=== PATIENT | male | born 1955 | race Caucasian/White ===

== ENCOUNTER 2018-02-01 17:08 | Emergency (ER) | payer OTHER ==
[~2018-02-01] VITALS: Ht 190.5 cm; Wt 73.6 kg
[~2018-02-01 17:08] MED LIST: FOLI1TAB16 PO; MAGN64TA10 PO; MULT-1179 PO; NICO-630 TD; PANT-47 PO; POTA20TA10 PO; THI100T PO
[2018-02-01] MEDS ORDERED: magnesium oxide 400mg tablet PO ONE ×2 (17:25→19:25)
[2018-02-01] MEDS ORDERED: thiamine 100mg tablet PO ONE ×2 (17:25→19:25)
[2018-02-01] MEDS ORDERED: folic acid 1mg tablet PO ONE ×2 (17:25→19:25)
[2018-02-01] MEDS ORDERED: normal saline 1000ML IV soln IVB ONE (17:25)
[2018-02-01] MEDS ORDERED: magnesium 2GM in 50ml NS 50 ML IV ONE (17:25)
[2018-02-01 17:56] LABS: BASOPHILS # (AUTO) 0.1 X10'3 (0-0.2); BASOPHILS % (AUTO) 0.7 % (0-1); EOSINOPHILS # (AUTO) 0.3 X10'3 (0-0.9); EOSINOPHILS % (AUTO) 2.9 % (0-6); HEMOGLOBIN 9.9 g/dl (14.0-17.9); LYMPHOCYTES # (AUTO) 1.3 X10'3 (1.1-4.8); LYMPHOCYTES % (AUTO) 12.9 % (21-51); MEAN CORPUSCULAR HEMOGLOBIN 35.2 PG (27.0-31.0); MEAN CORPUSCULAR VOLUME 103.4 FL (78-98); MEAN PLATELET VOLUME 7.7 FL (7.4-10.4); MONOCYTES # (AUTO) 0.5 X10'3 (0-0.9); MONOCYTES % (AUTO) 4.7 % (2-12); NEUTROPHILS # (AUTO) 7.9 X10'3 (1.8-7.7); NEUTROPHILS % (AUTO) 78.8 % (42-75); PLATELET COUNT 193 X10'3 (140-440); RED CELL DISTRIBUTION WIDTH 16.7 % (11.5-14.5)
[2018-02-01 18:03] LABS: PARTIAL THROMBOPLASTIN TIME 27 SECONDS (22-32); PROTHROMBIN TIME 10.5 SECONDS (9.0-12.0)
[2018-02-01 18:08] LABS: ALANINE AMINOTRANSFERASE 30 U/L (12-78); ALBUMIN 2.4 G/DL (3.4-5.0); ALBUMIN/GLOBULIN RATIO 0.5 (1.1-1.5); ALKALINE PHOSPHATASE 269 IU/L (46-116); ANION GAP 15 (8-16); ASPARTATE AMINO TRANSFERASE 116 U/L (10-37); BILIRUBIN,TOTAL 0.7 MG/DL (0.1-1.0); BLOOD UREA NITROGEN 9 MG/DL (7-18); BUN/CREATININE RATIO 9.1 (5.4-32.0); CALCIUM 8.2 MG/DL (8.5-10.1); CHLORIDE 99 MMOL/L (99-107); CREATININE 0.99 MG/DL (0.60-1.10); GLUCOSE 104 MG/DL (70-104); MAGNESIUM 1.2 MG/DL (1.5-2.4); POTASSIUM 3.4 MMOL/L (3.5-5.1); SODIUM 138 MMOL/L (135-145); TOTAL CARBON DIOXIDE 24.1 MMOL/L (24-32); TOTAL PROTEIN 6.8 G/DL (6.4-8.2); eGFR 76 ML/MIN
[2018-02-01] MEDS ORDERED: potassium Cl 20 mEq SR tablet PO ONE (18:15)
[2018-02-01 18:26] LABS: URINE AMPHETAMINE SCREEN NEGATIVE (Neg); URINE BARBITUATE SCREEN NEGATIVE (Neg); URINE BENZODIAZEPINES SCREEN NEGATIVE (Neg); URINE CANNABINOID SCREEN POSITIVE (Neg); URINE COCAINE SCREEN NEGATIVE (Neg); URINE METHADONE SCREEN NEGATIVE (Neg); URINE OPIATE SCREEN NEGATIVE (Neg); URINE PHENCYCLIDINE SCREEN NEGATIVE (Neg)
[2018-02-01 18:31] LABS: CLARITY,URINE CLEAR (Clear); COLOR,URINE YELLOW (Yellow); GLUCOSE, URINE NEGATIVE (Neg); KETONES,URINE TRACE mg/dl (Neg); LEUKOCYTE ESTERASE ,URINE NEGATIVE (Neg); NITRITES, URINE NEGATIVE (Neg); OCCULT BLOOD,URINE NEGATIVE (Neg); PH,URINE 5.5 (4.8-8.0); PROTEIN,URINE NEGATIVE (Neg)
[2018-02-01 18:39] LABS: UA COLLECTION TYPE URINAL
[2018-02-01] MEDS ORDERED: chlordiazePOXIDE 25mg capsule PO ONE (19:25)
[2018-02-01] MEDS ORDERED: MAGN400C PO (19:29)
[2018-02-01 19:39] LABS: OCCULT BLOOD STOOL NEGATIVE (Neg)
[2018-02-01 19:52] VITALS: BP 135/75
== END 2018-02-01 19:54 | disposition home or self-care (01) ==
LOC: ER 17:09
DX: F10.129 Alcohol abuse with intoxication, unspecified (principal); E83.42 Hypomagnesemia; E87.6 Hypokalemia; D53.9 Nutritional anemia, unspecified; I10 Essential (primary) hypertension; Z90.49 Acquired absence of other specified parts of digestive tract; Z79.899 Other long term (current) drug therapy; Y90.9 Presence of alcohol in blood, level not specified
CPT/HCPCS: 36415; 80053; 80305; 80320; 81003; 82272; 83735; 84484; 85025; 85610; 85730; 93005; 96365; 99285; J3475; J7030

== ENCOUNTER 2018-05-23 10:43 | Inpatient (IN) | payer OTHER ==
[2018-05-23] VITALS (9 sets, daily range): BP systolic 80–108; BP diastolic 44–62
[~2018-05-23] VITALS: Ht 190.5 cm; Wt 72.2 kg
[~2018-05-23 10:43] MED LIST changes: +MAGN400C PO
[2018-05-23] MEDS ORDERED: normal saline 1000ML IV soln IV ONE (11:15)
[2018-05-23 11:56] LABS: MEAN CORPUSCULAR HEMOGLOBIN 34.8 PG (27.0-31.0); MEAN CORPUSCULAR HGB CONC 33.9 % (33.0-36.5); MEAN CORPUSCULAR VOLUME 102.5 FL (78-98); MEAN PLATELET VOLUME 10.5 FL (7.4-10.4); PLATELET COUNT 177 X10'3 (140-440); RED BLOOD COUNT 1.88 X10'6 (4.70-6.10); RED CELL DISTRIBUTION WIDTH 19.2 % (11.5-14.5); WHITE BLOOD COUNT 16.3 X10'3 (4.5-11.0)
[2018-05-23 12:00] LABS: HEMATOCRIT 19.2 % (42.0-52.0); HEMOGLOBIN 6.5 g/dl (14.0-17.9)
[2018-05-23 12:14] LABS: ANISOCYTOSIS 2+; PLATELET ESTIMATE NORMAL; TOTAL CELLS COUNTED 100; TOXIC GRANULATION 1+
[2018-05-23 12:15] LABS: LARGE PLATELETS MODERATE; POLYCHROMASIA 1+; TARGET CELLS FEW
[2018-05-23] MEDS ORDERED: azithromycin/NS 500mg/250ml 250 ML IV ONE (12:20)
[2018-05-23] MEDS ORDERED: CefTRIAXone 2gm/D5W 50ml 50 ML IV ONE (12:20)
[2018-05-23] MEDS ORDERED: pantoprazole 40 MG vial IV ONE (12:20)
[2018-05-23 12:41] LABS: ALANINE AMINOTRANSFERASE 30 U/L (12-78); ALBUMIN 1.6 G/DL (3.4-5.0); ALBUMIN/GLOBULIN RATIO 0.3 (1.1-1.5); ALKALINE PHOSPHATASE 317 IU/L (46-116); ANION GAP 11 (8-16); ASPARTATE AMINO TRANSFERASE 164 U/L (10-37); BILIRUBIN,TOTAL 10.2 MG/DL (0.1-1.0); BLOOD UREA NITROGEN 39 MG/DL (7-18); BUN/CREATININE RATIO 22.5 (5.4-32.0); CALCIUM 7.4 MG/DL (8.5-10.1); CHLORIDE 89 MMOL/L (99-107); CREATININE 1.73 MG/DL (0.60-1.10); GLUCOSE 123 MG/DL (70-104); LIPASE 438 U/L (73-393); MAGNESIUM 1.5 MG/DL (1.5-2.4); SODIUM 132 MMOL/L (135-145); TOTAL PROTEIN 6.2 G/DL (6.4-8.2); eGFR 40 ML/MIN
[2018-05-23 12:42] LABS: POTASSIUM 2.6 MMOL/L (3.5-5.1)
[2018-05-23 12:58] LABS: CLARITY,URINE CLOUDY (Clear); COLOR,URINE AMBER (Yellow)
[2018-05-23 13:00] LABS: UA COLLECTION TYPE STRAIGHT CATH
[2018-05-23 13:03] LABS: BACTERIA,URINE 4+ /HPF (Neg); MUCUS STRANDS NONE SEEN /LPF (Neg); SQUAMOUS EPITHELIAL CELL,UR NONE SEEN /LPF (FEW); TRANSITIONAL EPI CELLS,URINE FEW /HPF; WBC CLUMPS,URINE FEW /HPF (NEGATIVE)
[2018-05-23 13:23] LABS: INR 1.5 INR; PARTIAL THROMBOPLASTIN TIME 37 SECONDS (22-32); PROTHROMBIN TIME 15.4 SECONDS (9.0-12.0)
[2018-05-23] MEDS ORDERED: metroNIDAZOLE-Flagyl 500mg/NS 100 ML IV STA (13:52)
[2018-05-23] MEDS ORDERED: potassium Cl 40MEQ/NS 500ml 500 ML IV PRN ×2 (14:15)
[2018-05-23] MEDS ORDERED: potassium Cl 20 mEq SR tablet PO PRN (14:15)
[2018-05-23] MEDS ORDERED: magnesium hydroxide 30ml (MOM) UD suspension PO PRN (14:15)
[2018-05-23] MEDS ORDERED: ondansetron/PF 4mg/2ml inj IV PRN (14:15)
[2018-05-23] MEDS ORDERED: mag hydrox/Alum hydrox/simeth 30ml oral suspension PO PRN (14:15)
[2018-05-23] MEDS ORDERED: magnesium 1gm/100ml D5W IVPB 100 ML IV PRN (14:15)
[2018-05-23] MEDS ORDERED: magnesium 4gm in 100ml NS 100 ML IV PRN (14:15)
[2018-05-23] MEDS ORDERED: acetaminophen 325mg tablet PO PRN (14:15)
[2018-05-23] MEDS: potassium 10mEq/100ml NS w/LIDOcaine (10mg/bag) IV SCH ×2 (14:38→14:40)
[2018-05-23] MEDS ORDERED: normal saline 1000ML IV soln IVB ONE (15:05)
[2018-05-23] MEDS ORDERED: pantoprazole 40MG/NS 100ML BAG 100 ML IV SCH (16:00)
[2018-05-23 17:13] LABS: HEMOGLOBIN 7.4 g/dl (14.0-17.9); MEAN CORPUSCULAR HEMOGLOBIN 32.9 PG (27.0-31.0); MEAN CORPUSCULAR HGB CONC 33.8 % (33.0-36.5); MEAN CORPUSCULAR VOLUME 97.4 FL (78-98); MEAN PLATELET VOLUME 9.6 FL (7.4-10.4); PLATELET COUNT 153 X10'3 (140-440); RED BLOOD COUNT 2.24 X10'6 (4.70-6.10); RED CELL DISTRIBUTION WIDTH 24.5 % (11.5-14.5)
[2018-05-23 17:15] LABS: HEMATOCRIT 21.9 % (42.0-52.0)
[2018-05-23] MEDS: normal saline 1000ml 1,000 ML IV SCH (17:18)
[2018-05-23] MEDS: thiamine inj. 100 MG, magnesium sulf injection 2 GM, MVI, adult No.4 with vit. K 10 ML ... IV SCH ×4 (17:40)
[2018-05-23 20:51] LABS: HEMOGLOBIN 7.3 g/dl (14.0-17.9); MEAN CORPUSCULAR HEMOGLOBIN 33.1 PG (27.0-31.0); MEAN CORPUSCULAR HGB CONC 33.9 % (33.0-36.5); MEAN CORPUSCULAR VOLUME 97.7 FL (78-98); MEAN PLATELET VOLUME 9.9 FL (7.4-10.4); PLATELET COUNT 152 X10'3 (140-440); RED CELL DISTRIBUTION WIDTH 25.2 % (11.5-14.5); WHITE BLOOD COUNT 10.9 X10'3 (4.5-11.0)
[2018-05-23 20:57] LABS: HEMATOCRIT 21.5 % (42.0-52.0)
[2018-05-23] MEDS ORDERED: diltiazem 5mg/ml 5ml inj. IV ONE ×2 (21:35→22:10)
[2018-05-23] MEDS ORDERED: diltiazem-NS 100mg/100ml 100 ML IV SCH (23:00)
[2018-05-23 23:40] LABS: TOTAL CELLS COUNTED 100
[2018-05-23 23:41] LABS: ANISOCYTOSIS 3+; PLATELET ESTIMATE NORMAL
[2018-05-23 23:42] LABS: TARGET CELLS FEW
[2018-05-23 23:43] LABS: LARGE PLATELETS FEW
[2018-05-24] VITALS (16 sets, daily range): BP systolic 68–140; BP diastolic 38–82
[2018-05-24] MEDS: normal saline 1000ml 1,000 ML IV SCH ×3 (00:11→20:11)
[2018-05-24] MEDS: metroNIDAZOLE-Flagyl 500mg/NS 100 ML IV SCH ×2 (01:10→07:32)
[2018-05-24] MEDS ORDERED: hydrocortisone sod succ/PF 250mg/2ml inj. IV ONE (01:30)
[2018-05-24] MEDS ORDERED: albumin (Human) 5% 250ml 250 ML IV ONE (01:48)
[2018-05-24] MEDS ORDERED: DOPamine 400mg/D5W 250ml 250 ML IV ONE (03:38)
[2018-05-24] MEDS: DOPamine 400mg/D5W 250ml 250 ML IV SCH (03:40)
[2018-05-24 05:51] LABS: HEMATOCRIT 24.8 % (42.0-52.0); HEMOGLOBIN 8.5 g/dl (14.0-17.9); MEAN CORPUSCULAR HEMOGLOBIN 32.2 PG (27.0-31.0); MEAN CORPUSCULAR HGB CONC 34.3 % (33.0-36.5); MEAN CORPUSCULAR VOLUME 93.8 FL (78-98); MEAN PLATELET VOLUME 10.1 FL (7.4-10.4); PLATELET COUNT 131 X10'3 (140-440); RED BLOOD COUNT 2.65 X10'6 (4.70-6.10); RED CELL DISTRIBUTION WIDTH 23.5 % (11.5-14.5)
[2018-05-24 06:09] LABS: ALANINE AMINOTRANSFERASE 30 U/L (12-78); ALBUMIN 1.6 G/DL (3.4-5.0); ALKALINE PHOSPHATASE 247 IU/L (46-116); ANION GAP 10 (8-16); ASPARTATE AMINO TRANSFERASE 139 U/L (10-37); BILIRUBIN,TOTAL 8.1 MG/DL (0.1-1.0); BLOOD UREA NITROGEN 29 MG/DL (7-18); BUN/CREATININE RATIO 18.7 (5.4-32.0); CALCIUM 6.6 MG/DL (8.5-10.1); CHLORIDE 99 MMOL/L (99-107); CREATININE 1.55 MG/DL (0.60-1.10); GLUCOSE 126 MG/DL (70-104); MAGNESIUM 1.2 MG/DL (1.5-2.4); SODIUM 133 MMOL/L (135-145); TOTAL CARBON DIOXIDE 24.2 MMOL/L (24-32); eGFR 46 ML/MIN
[2018-05-24 06:10] LABS: ALBUMIN/GLOBULIN RATIO 0.4 (1.1-1.5); POTASSIUM 3.1 MMOL/L (3.5-5.1); TOTAL PROTEIN 5.5 G/DL (6.4-8.2)
[2018-05-24 07:02] LABS: TOTAL CELLS COUNTED 100
[2018-05-24 07:03] LABS: ANISOCYTOSIS 3+; HYPOCHROMASIA 1+; PLATELET ESTIMATE DECREASED; POLYCHROMASIA 1+; TARGET CELLS FEW; TOXIC GRANULATION 1+
[2018-05-24] MEDS: pantoprazole 40 MG vial IV SCH (07:16)
[2018-05-24] MEDS: potassium Cl 20 mEq SR tablet PO PRN ×4 (07:17→21:15)
[2018-05-24] MEDS: magnesium Cl slow-release 64mg tablet PO PRN ×2 (07:19→21:16)
[2018-05-24] MEDS: thiamine inj. 100 MG, magnesium sulf injection 2 GM, MVI, adult No.4 with vit. K 10 ML ... IV SCH ×4 (07:30)
[2018-05-24] MEDS: azithromycin/NS 500mg/250ml 250 ML IV SCH (07:31)
[2018-05-24] MEDS: K and/or MAG REPLACEMENT MC SCH (08:00)
[2018-05-24] MEDS ORDERED: CefTRIAXone/D5W-Rocephin 1gm 50 ML IV SCH (08:00)
[2018-05-24] MEDS ORDERED: NORMAL SALINE IV ONE (08:00)
[2018-05-24] MEDS ORDERED: SINCALIDE IV ONE (08:00)
[2018-05-24 08:14] LABS: HEMATOCRIT 27.1 % (42.0-52.0); HEMOGLOBIN 9.4 g/dl (14.0-17.9); MEAN CORPUSCULAR HEMOGLOBIN 32.4 PG (27.0-31.0); MEAN CORPUSCULAR HGB CONC 34.7 % (33.0-36.5); MEAN CORPUSCULAR VOLUME 93.4 FL (78-98); MEAN PLATELET VOLUME 9.3 FL (7.4-10.4); PLATELET COUNT 136 X10'3 (140-440); RED BLOOD COUNT 2.91 X10'6 (4.70-6.10); RED CELL DISTRIBUTION WIDTH 24.2 % (11.5-14.5); WHITE BLOOD COUNT 21.5 X10'3 (4.5-11.0)
[2018-05-24 08:41] LABS: TOTAL CELLS COUNTED 100
[2018-05-24 08:42] LABS: ANISOCYTOSIS 3+; PLATELET ESTIMATE DECREASED
[2018-05-24 08:46] LABS: POLYCHROMASIA 1+; TARGET CELLS FEW
[2018-05-24 08:47] LABS: TOXIC GRANULATION 1+
[2018-05-24] MEDS: lactobacillus rhamnosus 10,000 MMU CELLS/CAPSULE PO SCH ×2 (10:23→21:16)
[2018-05-24] MEDS: albumin (Human) 5% 250 ML IV solution IV SCH (10:25)
[2018-05-24] MEDS: vancomycin/NS 1 GM ADD-VANTAGE 250 ML IV SCH ×2 (10:26→22:00)
[2018-05-24] MEDS: piperacillin/tazo 3.375gm/50ml 50 ML IV SCH ×3 (10:26→21:21)
[2018-05-24] MEDS: nicotine 14mg patch - 24hr TD SCH (12:09)
[2018-05-24 15:14] LABS: HEMATOCRIT 27.4 % (42.0-52.0); HEMOGLOBIN 9.4 g/dl (14.0-17.9); MEAN CORPUSCULAR HEMOGLOBIN 32.4 PG (27.0-31.0); MEAN CORPUSCULAR HGB CONC 34.4 % (33.0-36.5); MEAN CORPUSCULAR VOLUME 94.3 FL (78-98); MEAN PLATELET VOLUME 10.3 FL (7.4-10.4); PLATELET COUNT 152 X10'3 (140-440); RED CELL DISTRIBUTION WIDTH 24.6 % (11.5-14.5); WHITE BLOOD COUNT 20.6 X10'3 (4.5-11.0)
[2018-05-24] MEDS ORDERED: ipratropium/albuterol 3ml nebule NEB PRN (15:20)
[2018-05-24 15:21] LABS: ABG BASE EXCESS -1.4 mmol/L (-2.0-3.0); ABG HCO3 22.7 mmol/L (22.0-26.0); ABG OXYGEN SATURATION 96.5 % (95-98); ABG PH (T) 7.418 (7.350-7.450); ABG PO2 (T) 91.6 mmHg (83-108); ALLEN'S TEST Positive; FCOHb 0.3 % (0.5-1.5); FLOW 5 L/min; FMetHb 0.1 % (0.3-1.12); FO2Hb 96.1 % (94-100); RESPIRATORY RATE (OBSERVED) 24 b/min; TOTAL HEMOGLOBIN 10.1 G/dl (14.0-18.0)
[2018-05-24 15:42] LABS: ANISOCYTOSIS 3+; PLATELET ESTIMATE NORMAL; POLYCHROMASIA 1+; TOTAL CELLS COUNTED 100
[2018-05-24 15:43] LABS: TARGET CELLS 1+
[2018-05-24 17:54] LABS: C DIFF ANTIGEN SEE COMMENTS (NEGATIVE); C DIFF SPECIMEN=DIARRHEA? ACCEPTABLE; C DIFFICILE TOXINS A&B NEGATIVE (Neg)
[2018-05-24 17:59] LABS: C DIFF TOXIN (LAMP) POSITIVE (NEG)
[2018-05-24 19:55] LABS: HEMATOCRIT 26.6 % (42.0-52.0); HEMOGLOBIN 9.1 g/dl (14.0-17.9); MEAN CORPUSCULAR HGB CONC 34.2 % (33.0-36.5); MEAN CORPUSCULAR VOLUME 93.5 FL (78-98); MEAN PLATELET VOLUME 9.9 FL (7.4-10.4); PLATELET COUNT 151 X10'3 (140-440); RED BLOOD COUNT 2.84 X10'6 (4.70-6.10); RED CELL DISTRIBUTION WIDTH 24.8 % (11.5-14.5); WHITE BLOOD COUNT 19.8 X10'3 (4.5-11.0)
[2018-05-24] MEDS ORDERED: HYDROmorphone inj. 0.5 MG/0.5 ML DISP.SYRIN IV PRN (20:40)
[2018-05-24] MEDS ORDERED: morphine 10mg/0.5ml (conc. morphine) oral syringe PO PRN (20:40)
[2018-05-24 21:02] LABS: TOTAL CELLS COUNTED 100
[2018-05-24 21:03] LABS: ANISOCYTOSIS 3+; PLATELET ESTIMATE NORMAL
[2018-05-24 21:04] LABS: LARGE PLATELETS FEW; TARGET CELLS 1+
[2018-05-24] MEDS ORDERED: HYDROmorphone 1 mg/ml syringe ONE (21:09)
[2018-05-25] MEDS: piperacillin/tazo 3.375gm/50ml 50 ML IV SCH ×2 (02:00→09:44)
[2018-05-25] MEDS: DOPamine 400mg/D5W 250ml 250 ML IV SCH (03:40)
[2018-05-25 04:59] LABS: HEMATOCRIT 24.9 % (42.0-52.0); HEMOGLOBIN 8.5 g/dl (14.0-17.9); MEAN CORPUSCULAR VOLUME 93.9 FL (78-98); MEAN PLATELET VOLUME 9.7 FL (7.4-10.4); PLATELET COUNT 134 X10'3 (140-440); RED BLOOD COUNT 2.66 X10'6 (4.70-6.10); RED CELL DISTRIBUTION WIDTH 25.2 % (11.5-14.5); WHITE BLOOD COUNT 15.6 X10'3 (4.5-11.0)
[2018-05-25 05:15] LABS: ALANINE AMINOTRANSFERASE 30 U/L (12-78); ALBUMIN 1.7 G/DL (3.4-5.0); ALKALINE PHOSPHATASE 251 IU/L (46-116); ANION GAP 9 (8-16); ASPARTATE AMINO TRANSFERASE 100 U/L (10-37); BILIRUBIN,TOTAL 8.4 MG/DL (0.1-1.0); BLOOD UREA NITROGEN 26 MG/DL (7-18); BUN/CREATININE RATIO 16.1 (5.4-32.0); CALCIUM 7.1 MG/DL (8.5-10.1); CHLORIDE 101 MMOL/L (99-107); CREATININE 1.61 MG/DL (0.60-1.10); GLUCOSE 100 MG/DL (70-104); MAGNESIUM 1.3 MG/DL (1.5-2.4); SODIUM 135 MMOL/L (135-145); TOTAL CARBON DIOXIDE 24.9 MMOL/L (24-32); eGFR 44 ML/MIN
[2018-05-25 05:16] LABS: ALBUMIN/GLOBULIN RATIO 0.4 (1.1-1.5); POTASSIUM 3.3 MMOL/L (3.5-5.1); TOTAL PROTEIN 5.6 G/DL (6.4-8.2)
[2018-05-25] MEDS: normal saline 1000ml 1,000 ML IV SCH ×2 (06:11→16:11)
[2018-05-25 06:51] LABS: ANISOCYTOSIS 3+; LARGE PLATELETS FEW; PLATELET ESTIMATE DECREASED; TARGET CELLS 1+; TOTAL CELLS COUNTED 100
[2018-05-25] MEDS: thiamine 100mg tablet PO SCH (07:42)
[2018-05-25] MEDS: lactobacillus rhamnosus 10,000 MMU CELLS/CAPSULE PO SCH ×2 (07:42→20:38)
[2018-05-25] MEDS: pantoprazole 40 MG vial IV SCH (07:43)
[2018-05-25] MEDS: LORazepam 2 mg/ml vial IV PRN ×2 (07:43→21:41)
[2018-05-25] MEDS: nicotine 14mg patch - 24hr TD SCH (07:44)
[2018-05-25] MEDS: azithromycin/NS 500mg/250ml 250 ML IV SCH (07:45)
[2018-05-25 08:00] VITALS: BP 118/56
[2018-05-25] MEDS ORDERED: nicotine 14mg patch - 24hr TD SCH (08:00)
[2018-05-25] MEDS: multivitamins, therapeutics tablet PO SCH (08:00)
[2018-05-25] MEDS: K and/or MAG REPLACEMENT MC SCH (08:00)
[2018-05-25] MEDS: potassium Cl 20 mEq SR tablet PO PRN ×3 (08:01→20:38)
[2018-05-25 08:22] LABS: HEMATOCRIT 25.1 % (42.0-52.0); HEMOGLOBIN 8.8 g/dl (14.0-17.9); MEAN CORPUSCULAR HEMOGLOBIN 32.7 PG (27.0-31.0); MEAN CORPUSCULAR HGB CONC 35.1 % (33.0-36.5); MEAN CORPUSCULAR VOLUME 93.1 FL (78-98); MEAN PLATELET VOLUME 9.6 FL (7.4-10.4); PLATELET COUNT 137 X10'3 (140-440); RED CELL DISTRIBUTION WIDTH 25.3 % (11.5-14.5); WHITE BLOOD COUNT 14.9 X10'3 (4.5-11.0)
[2018-05-25 08:44] LABS: ANISOCYTOSIS 3+; LARGE PLATELETS FEW; PLATELET ESTIMATE DECREASED; TARGET CELLS 1+; TOTAL CELLS COUNTED 100
[2018-05-25] MEDS: albumin (Human) 5% 250 ML IV solution IV SCH (10:18)
[2018-05-25 11:00] VITALS: BP 91/61
[2018-05-25] MEDS ORDERED: vancomycin/NS 1 GM ADD-VANTAGE 250 ML IV SCH (12:00)
[2018-05-25] MEDS ORDERED: vancomycin 125mg/5ml ORAL solution 5ml UD bottle PO SCH (14:00)
[2018-05-25 14:18] LABS: HEMATOCRIT 25.3 % (42.0-52.0); HEMOGLOBIN 8.7 g/dl (14.0-17.9); MEAN CORPUSCULAR HEMOGLOBIN 32.5 PG (27.0-31.0); MEAN CORPUSCULAR HGB CONC 34.6 % (33.0-36.5); MEAN PLATELET VOLUME 9.9 FL (7.4-10.4); PLATELET COUNT 140 X10'3 (140-440); RED BLOOD COUNT 2.69 X10'6 (4.70-6.10); RED CELL DISTRIBUTION WIDTH 25.6 % (11.5-14.5); WHITE BLOOD COUNT 17.3 X10'3 (4.5-11.0)
[2018-05-25 14:29] LABS: ANISOCYTOSIS 3+; PLATELET ESTIMATE NORMAL; TOTAL CELLS COUNTED 100
[2018-05-25 14:30] LABS: LARGE PLATELETS FEW; POIKILOCYTOSIS FEW; POLYCHROMASIA FEW; TARGET CELLS 1+
[2018-05-25 15:00] VITALS: BP 100/62
[2018-05-25] MEDS: HYDROmorphone 1 mg/ml syringe IV PRN (15:45)
[2018-05-25 19:00] VITALS: BP 108/51
[2018-05-25] MEDS: vancomcyin 250mg capsules PO SCH (20:38)
[2018-05-25] MEDS ORDERED: VANCOMYCIN LEVEL IV ONE (21:30)
[2018-05-25 23:00] VITALS: BP 96/56
[2018-05-26] MEDS: vancomcyin 250mg capsules PO SCH ×4 (01:12→19:50)
[2018-05-26] MEDS: normal saline 1000ml 1,000 ML IV SCH ×3 (01:12→19:50)
[2018-05-26] MEDS: LORazepam 2 mg/ml vial IV PRN ×2 (01:26→19:50)
[2018-05-26 05:12] LABS: HEMATOCRIT 27.5 % (42.0-52.0); HEMOGLOBIN 9.3 g/dl (14.0-17.9); MEAN CORPUSCULAR HEMOGLOBIN 32.4 PG (27.0-31.0); MEAN CORPUSCULAR HGB CONC 33.9 % (33.0-36.5); MEAN CORPUSCULAR VOLUME 95.5 FL (78-98); MEAN PLATELET VOLUME 9.5 FL (7.4-10.4); PLATELET COUNT 150 X10'3 (140-440); RED BLOOD COUNT 2.88 X10'6 (4.70-6.10); RED CELL DISTRIBUTION WIDTH 25.4 % (11.5-14.5); WHITE BLOOD COUNT 18.1 X10'3 (4.5-11.0)
[2018-05-26 05:46] LABS: ALANINE AMINOTRANSFERASE 41 U/L (12-78); ALBUMIN 1.9 G/DL (3.4-5.0); ALKALINE PHOSPHATASE 250 IU/L (46-116); ANION GAP 8 (8-16); ASPARTATE AMINO TRANSFERASE 127 U/L (10-37); BILIRUBIN,TOTAL 9.2 MG/DL (0.1-1.0); BLOOD UREA NITROGEN 23 MG/DL (7-18); BUN/CREATININE RATIO 13.8 (5.4-32.0); CALCIUM 7.9 MG/DL (8.5-10.1); CHLORIDE 104 MMOL/L (99-107); CREATININE 1.67 MG/DL (0.60-1.10); GLUCOSE 95 MG/DL (70-104); MAGNESIUM 1.3 MG/DL (1.5-2.4); SODIUM 135 MMOL/L (135-145); eGFR 42 ML/MIN
[2018-05-26 05:50] LABS: ALBUMIN/GLOBULIN RATIO 0.5 (1.1-1.5); POTASSIUM 3.6 MMOL/L (3.5-5.1); TOTAL PROTEIN 5.9 G/DL (6.4-8.2)
[2018-05-26 06:45] LABS: ANISOCYTOSIS 3+; PLATELET ESTIMATE NORMAL; TOTAL CELLS COUNTED 100
[2018-05-26 06:46] LABS: POLYCHROMASIA FEW; TARGET CELLS FEW
[2018-05-26] MEDS: albumin (Human) 5% 250 ML IV solution IV SCH (08:00)
[2018-05-26] MEDS: K and/or MAG REPLACEMENT MC SCH (08:00)
[2018-05-26] MEDS: nicotine 14mg patch - 24hr TD SCH (09:09)
[2018-05-26] MEDS: pantoprazole 40 MG vial IV SCH (09:10)
[2018-05-26] MEDS: CefTRIAXone/D5W-Rocephin 1gm 50 ML IV SCH (09:10)
[2018-05-26] MEDS: lactobacillus rhamnosus 10,000 MMU CELLS/CAPSULE PO SCH ×2 (09:10→19:50)
[2018-05-26] MEDS: multivitamins, therapeutics tablet PO SCH (09:10)
[2018-05-26] MEDS: thiamine 100mg tablet PO SCH (09:10)
[2018-05-26 09:16] LABS: HEMATOCRIT 26.6 % (42.0-52.0); HEMOGLOBIN 9.1 g/dl (14.0-17.9); MEAN CORPUSCULAR HEMOGLOBIN 32.5 PG (27.0-31.0); MEAN CORPUSCULAR HGB CONC 34.1 % (33.0-36.5); MEAN CORPUSCULAR VOLUME 95.3 FL (78-98); MEAN PLATELET VOLUME 9.4 FL (7.4-10.4); PLATELET COUNT 146 X10'3 (140-440); RED BLOOD COUNT 2.79 X10'6 (4.70-6.10); WHITE BLOOD COUNT 17.1 X10'3 (4.5-11.0)
[2018-05-26 10:25] LABS: ANISOCYTOSIS 3+; PLATELET ESTIMATE NORMAL; TOTAL CELLS COUNTED 100
[2018-05-26 10:27] LABS: BURR CELLS 1+; TARGET CELLS 1+
[2018-05-26 12:00] VITALS: BP 103/67
[2018-05-26 14:17] LABS: HEMATOCRIT 27.6 % (42.0-52.0); HEMOGLOBIN 9.4 g/dl (14.0-17.9); MEAN CORPUSCULAR HEMOGLOBIN 32.4 PG (27.0-31.0); MEAN CORPUSCULAR HGB CONC 34.1 % (33.0-36.5); MEAN CORPUSCULAR VOLUME 95.2 FL (78-98); MEAN PLATELET VOLUME 9.4 FL (7.4-10.4); PLATELET COUNT 157 X10'3 (140-440); RED CELL DISTRIBUTION WIDTH 25.1 % (11.5-14.5); WHITE BLOOD COUNT 19.8 X10'3 (4.5-11.0)
[2018-05-26 14:38] LABS: TOTAL CELLS COUNTED 100
[2018-05-26 14:40] LABS: ANISOCYTOSIS 3+; PLATELET ESTIMATE NORMAL
[2018-05-26 14:51] LABS: BURR CELLS 1+; TARGET CELLS FEW
[2018-05-26 20:00] VITALS: BP 129/76
[2018-05-26] MEDS ORDERED: VANCOMYCIN LEVEL IV ONE (23:30)
[2018-05-27] MEDS: vancomcyin 250mg capsules PO SCH ×4 (02:00→20:09)
[2018-05-27 06:26] LABS: ALANINE AMINOTRANSFERASE 49 U/L (12-78); ALBUMIN 1.9 G/DL (3.4-5.0); ALKALINE PHOSPHATASE 262 IU/L (46-116); ANION GAP 12 (8-16); ASPARTATE AMINO TRANSFERASE 122 U/L (10-37); BILIRUBIN,TOTAL 8.6 MG/DL (0.1-1.0); BLOOD UREA NITROGEN 21 MG/DL (7-18); BUN/CREATININE RATIO 14.8 (5.4-32.0); CALCIUM 8.4 MG/DL (8.5-10.1); CHLORIDE 107 MMOL/L (99-107); CREATININE 1.42 MG/DL (0.60-1.10); GLUCOSE 103 MG/DL (70-104); SODIUM 141 MMOL/L (135-145); TOTAL CARBON DIOXIDE 21.9 MMOL/L (24-32); eGFR 50 ML/MIN
[2018-05-27 06:29] LABS: ALBUMIN/GLOBULIN RATIO 0.4 (1.1-1.5); POTASSIUM 3.6 MMOL/L (3.5-5.1); TOTAL PROTEIN 6.2 G/DL (6.4-8.2)
[2018-05-27] MEDS: normal saline 1000ml 1,000 ML IV SCH ×2 (06:32→18:47)
[2018-05-27 07:00] VITALS: BP 123/77
[2018-05-27] MEDS: multivitamins, therapeutics tablet PO SCH (08:00)
[2018-05-27] MEDS: lactobacillus rhamnosus 10,000 MMU CELLS/CAPSULE PO SCH ×2 (08:00→20:09)
[2018-05-27] MEDS: K and/or MAG REPLACEMENT MC SCH (08:00)
[2018-05-27] MEDS: albumin (Human) 5% 250 ML IV solution IV SCH (08:00)
[2018-05-27] MEDS: thiamine 100mg tablet PO SCH (08:00)
[2018-05-27] MEDS: nicotine 14mg patch - 24hr TD SCH (08:45)
[2018-05-27] MEDS: pantoprazole 40 MG vial IV SCH (10:31)
[2018-05-27] MEDS: CefTRIAXone/D5W-Rocephin 1gm 50 ML IV SCH (10:31)
[2018-05-27] MEDS: HYDROmorphone 1 mg/ml syringe IV PRN (18:49)
[2018-05-27 20:00] VITALS: BP 127/81
[2018-05-28] MEDS: vancomcyin 250mg capsules PO SCH ×4 (01:11→19:41)
[2018-05-28] MEDS: LORazepam 2 mg/ml vial IV PRN ×2 (01:28→13:48)
[2018-05-28] MEDS: normal saline 1000ml 1,000 ML IV SCH ×3 (03:24→23:16)
[2018-05-28] MEDS: HYDROmorphone 1 mg/ml syringe IV PRN ×4 (04:50→22:09)
[2018-05-28] MEDS: lactobacillus rhamnosus 10,000 MMU CELLS/CAPSULE PO SCH ×2 (08:00→19:41)
[2018-05-28] MEDS: albumin (Human) 5% 250 ML IV solution IV SCH (08:00)
[2018-05-28] MEDS: multivitamins, therapeutics tablet PO SCH (08:00)
[2018-05-28] MEDS: thiamine 100mg tablet PO SCH (08:00)
[2018-05-28] MEDS: nicotine 14mg patch - 24hr TD SCH (10:05)
[2018-05-28] MEDS: pantoprazole 40 MG vial IV SCH (10:05)
[2018-05-28] MEDS: CefTRIAXone/D5W-Rocephin 1gm 50 ML IV SCH (10:05)
[2018-05-28 20:00] VITALS: BP 87/54
[2018-05-29] MEDS: vancomcyin 250mg capsules PO SCH ×4 (02:00→20:00)
[2018-05-29] MEDS: HYDROmorphone 1 mg/ml syringe IV PRN ×4 (04:14→19:02)
[2018-05-29] MEDS: LORazepam 2 mg/ml vial IV PRN ×2 (07:03→13:52)
[2018-05-29] MEDS ORDERED: pantoprazole 40mg Tablet.DR PO SCH (07:30)
[2018-05-29 08:00] VITALS: BP 95/64
[2018-05-29] MEDS: multivitamins, therapeutics tablet PO SCH (08:00)
[2018-05-29] MEDS: thiamine 100mg tablet PO SCH (08:00)
[2018-05-29] MEDS: lactobacillus rhamnosus 10,000 MMU CELLS/CAPSULE PO SCH (08:00)
[2018-05-29] MEDS: albumin (Human) 5% 250 ML IV solution IV SCH (08:00)
[2018-05-29] MEDS: CefTRIAXone/D5W-Rocephin 1gm 50 ML IV SCH (08:00)
[2018-05-29] MEDS: nicotine 14mg patch - 24hr TD SCH (10:40)
[2018-05-29] MEDS: normal saline 1000ml 1,000 ML IV SCH ×2 (10:40→19:01)
[2018-05-30] MEDS: vancomcyin 250mg capsules PO SCH ×2 (01:58→08:00)
[2018-05-30] MEDS: HYDROmorphone 1 mg/ml syringe IV PRN ×2 (02:38→08:29)
[2018-05-30] MEDS: LORazepam 2 mg/ml vial IV PRN ×2 (06:08→09:55)
[2018-05-30] MEDS: normal saline 1000ml 1,000 ML IV SCH (06:08)
[2018-05-30 08:00] VITALS: BP 105/67
[2018-05-30] MEDS: CefTRIAXone/D5W-Rocephin 1gm 50 ML IV SCH (08:00)
[2018-05-30] MEDS: nicotine 14mg patch - 24hr TD SCH (08:29)
[2018-05-30] MEDS ORDERED: morphine 4 MG/ML inj SYRINge IV PRN ×2 (17:35→18:00)
== END 2018-05-30 20:50 | disposition expired | DRG 871 ==
LOC: ER 10:44 → ED HOLD 14:11 → PCU 3S 16:44 → SUR 3N 05-26 03:30
PROVIDERS: ADMIT Internal Medicine; ATTEND Internal Medicine
PROC: 30233N1 Transfusion of Nonautologous Red Blood Cells into Peripheral Vein, Percutaneous Approach (ICD-10-PCS; principal; 2018-05-23)
PROC: CF241ZZ Tomographic (Tomo) Nuclear Medicine Imaging of Gallbladder using Technetium 99m (Tc-99m) (ICD-10-PCS; 2018-05-24)
PROC: 30233N1 Transfusion of Nonautologous Red Blood Cells into Peripheral Vein, Percutaneous Approach (ICD-10-PCS; 2018-05-24)
DX: A41.1 Sepsis due to other specified staphylococcus (principal); G93.41 Metabolic encephalopathy; J18.9 Pneumonia, unspecified organism; K85.90 Acute pancreatitis without necrosis or infection, unspecified; A04.72 Enterocolitis due to Clostridium difficile, not specified as recurrent; D68.9 Coagulation defect, unspecified; E87.1 Hypo-osmolality and hyponatremia; J44.0 Chronic obstructive pulmonary disease with (acute) lower respiratory infection; J44.1 Chronic obstructive pulmonary disease with (acute) exacerbation; N17.9 Acute kidney failure, unspecified; N39.0 Urinary tract infection, site not specified; R18.8 Other ascites; R64 Cachexia; Z68.1 Body mass index [BMI] 19.9 or less, adult; R65.20 Severe sepsis without septic shock; K81.9 Cholecystitis, unspecified; L89.152 Pressure ulcer of sacral region, stage 2; L89.212 Pressure ulcer of right hip, stage 2; D64.9 Anemia, unspecified; E86.0 Dehydration; E87.6 Hypokalemia; F17.200 Nicotine dependence, unspecified, uncomplicated; F41.9 Anxiety disorder, unspecified; I10 Essential (primary) hypertension; K72.90 Hepatic failure, unspecified without coma; K74.60 Unspecified cirrhosis of liver; B96.20 Unspecified Escherichia coli [E. coli] as the cause of diseases classified elsewhere; Z51.5 Encounter for palliative care; Z66 Do not resuscitate; Z90.49 Acquired absence of other specified parts of digestive tract
CPT/HCPCS: 36415; 36600; 70450; 71045; 74176; 76700; 78226; 80053; 80320; 81001; 82140; 82803; 83605; 83690; 83735; 84145; 84484; 85018; 85025; 85027; 85610; 85730; 86885; 86900; 86901; 86920; 87040; 87070; 87077; 87088; 87186; 87324; 87449; 87493; 93005; 93306; 94640; 94760; 96366; 96375; 99291; A4315; A4353; A6212; A6213; A6250; A6257; A9537; C9113; J0456; J0696; J1170; J1265; J1720; J2060; J2270; J2405; J2543; J2805; J3370; J3411; J3475; J3480; J3490; J7030; J7040; J7060; P9016; P9045